=== PATIENT | female | born 1965 | race Caucasian/White ===

== ENCOUNTER 2017-07-28 11:13 | Emergency (ER) | payer OTHER ==
[2017-07-28] MEDS ORDERED: ONDANSETRON 4 MG/2 ML VIAL IVP STA (11:38)
[2017-07-28] MEDS ORDERED: SODIUM CHLORIDE 0.9% 2,000 ML IV STA (11:38)
[2017-07-28 12:15] LABS: Basophils % (A) 0 %; CH 32.4; CHCM 36.1; Eosinophils # (A) 0.2 k/uL (0-0.7); Eosinophils % (A) 3 %; HCT 40.9 % (34.0-46.0); HDW 2.63; HGB 14.8 gm/dL (11.4-16.0); Luc # (Auto) 0.11; Luc % (Auto) 2; Lymphocytes # (A) 1.6 k/uL (1.0-4.8); Lymphocytes % (A) 28 %; MCH 32.6 pg (25.0-35.0); MCHC 36.2 g/dL (31.0-37.0); Monocytes # (A) 0.3 k/uL (0-1.0); Monocytes % (A) 5 %; Neutrophils # (A) 3.5 k/uL (1.3-7.7); Neutrophils % (A) 62 %; RBC 4.55 m/uL (3.80-5.40); RDW 12.8 % (11.5-15.5); WBC 5.7 k/uL (3.8-10.6); WBC (Perox) 5.52
[2017-07-28 12:16] LABS: ALT 27 U/L (9-52); AST 24 U/L (14-36); Alkaline Phosphatase 47 U/L (38-126); Amylase 55 U/L (30-110); Anion Gap 6 mmol/L; Blood Urea Nitrogen 16 mg/dL (7-17); Calcium 10.3 mg/dL (8.4-10.2); Carbon Dioxide 27 mmol/L (22-30); Chloride 107 mmol/L (98-107); Glucose 95 mg/dL (74-99); Non-African American GFR(MDRD) >60 (>60 ml/min/1.73 sqM); Sodium 140 mmol/L (137-145); Total Bilirubin 0.5 mg/dL (0.2-1.3); Total Protein 6.8 g/dL (6.3-8.2)
--- NOTE | 2017-07-28 12:17 | ED ---
Nausea/Vomiting/Diarrhea HPI - General Chief complaint: Nausea/Vomiting/Diarrhea Stated complaint: Severe diarrhea Time Seen by Provider: 07/28/17 11:22 Source: patient, RN notes reviewed, old records reviewed Mode of arrival: ambulatory Limitations: no limitations - History of Present Illness Initial comments: This is a 52-year-old female presenting to emergency Department chief complaint of diarrhea for the past month. Patient reports it seemed to start after she had a vacation in [place]. Patient states 2 weeks after vacation apart and she started noticed the severe diarrhea. She states it's mucousy. She states that she's noticed no blood. Patient reports that she feels very full and bloated. States she feels nauseated but denies any specific vomiting. She reports that she'll have lower abdominal cramping. Patient states that she cannot eat anything after that until cause further diarrhea. Patient's surgical history includes tubal ligation, and multiple plastic surgeries. - Related Data Previous Rx's Medication Instructions Recorded Ciprofloxacin HCl [Cipro] 500 mg PO Q12HR #6 tab 07/28/17 Allergies Allergy/AdvReac Type Severity Reaction Status Date / Time No Known Allergies Allergy Verified 07/28/17 11:43 Review of Systems ROS Statement: Those systems with pertinent positive or pertinent negative responses have been documented in the HPI. ROS Other: All systems not noted in ROS Statement are negative. Past Medical History Additional Past Medical History / Comment(s): Heart Murmur History of Any Multi-Drug Resistant Organisms: MRSA Date of last positivie culture/infection: 2009 Past Surgical History: Hysterectomy, Orthopedic Surgery Past Psychological History: Anxiety, Depression Smoking Status: Former smoker Past Alcohol Use History: Occasional Past Drug Use History: None Reported General Exam - General Exam Comments Initial Comments: This is a 52-year-old female. Patient does not appear to be in any acute distress. Limitations: no limitations General appearance: alert, in no apparent distress Head exam: Present: atraumatic, normocephalic, normal inspection Eye exam: Present: normal appearance, PERRL, EOMI. Absent: scleral icterus, conjunctival injection, periorbital swelling ENT exam: Present: normal exam, mucous membranes moist Neck exam: Present: normal inspection. Absent: tenderness, meningismus, lymphadenopathy Respiratory exam: Present: normal lung sounds bilaterally. Absent: respiratory distress, wheezes, rales, rhonchi, stridor Cardiovascular Exam: Present: regular rate, normal rhythm, normal heart sounds. Absent: systolic murmur, diastolic murmur, rubs, gallop, clicks GI/Abdominal exam: Present: soft, normal bowel sounds, hyperactive bowel sounds (Patient has hyperactive bowel sounds.). Absent: distended, guarding, rebound, rigid Extremities exam: Present: normal inspection, full ROM, normal capillary refill. Absent: tenderness, pedal edema, joint swelling, calf tenderness Back exam: Present: normal inspection Neurological exam: Present: alert, oriented X3, CN II-XII intact Psychiatric exam: Present: normal affect, normal mood Skin exam: Present: warm, dry, intact, normal color. Absent: rash Course Vital Signs 07/28/17 07/28/17 11:15 15:11 Temperature 97.4 F L 97.8 F Pulse Rate 65 52 L Respiratory 18 16 Rate Blood Pressure 125/80 134/84 O2 Sat by Pulse 100 99 Oximetry Medical Decision Making - Medical Decision Making This is a 52-year-old female presenting to emergency Department chief complaint of diarrhea for the past month. Patient reports it seemed to start after she had a vacation in [place]. Patient states 2 weeks after vacation apart and she started noticed the severe diarrhea. She states it's mucousy. She states that she's noticed no blood. Patient reports that she feels very full and bloated. Patient's laboratory been negative for any acute process. C. diff negative. Patient is given IV fluids. She reports she is feeling somewhat better. His elbow discharge the patient with antibiotic as I'm concerned due to the length of time she may have an infectious diarrhea. Stool cultures obtained. Discussed following up with a primary care provider. Discussed return to emergency department if any alarming signs symptoms occur. - Lab Data Result diagrams: 07/28/17 11:52 07/28/17 11:52 Lab Results 07/28/17 07/28/17 07/28/17 Range/Units 11:52 11:52 11:52 WBC 5.7 (3.8-10.6) k/uL RBC 4.55 (3.80-5.40) m/uL Hgb 14.8 (11.4-16.0) gm/dL Hct 40.9 (34.0-46.0) % MCV 90.0 (80.0-100.0) fL MCH 32.6 (25.0-35.0) pg MCHC 36.2 (31.0-37.0) g/dL RDW 12.8 (11.5-15.5) % Plt Count 204 (150-450) k/uL Neutrophils % 62 % Lymphocytes % 28 % Monocytes % 5 % Eosinophils % 3 % Basophils % 0 % Neutrophils # 3.5 (1.3-7.7) k/uL Lymphocytes # 1.6 (1.0-4.8) k/uL Monocytes # 0.3 (0-1.0) k/uL Eosinophils # 0.2 (0-0.7) k/uL Basophils # 0.0 (0-0.2) k/uL Sodium 140 (137-145) mmol/L Potassium 4.0 (3.5-5.1) mmol/L Chloride 107 (98-107) mmol/L Carbon Dioxide 27 (22-30) mmol/L Anion Gap 6 mmol/L BUN 16 (7-17) mg/dL Creatinine 0.81 (0.52-1.04) mg/dL Est GFR (MDRD) Af Amer >60 (>60 ml/min/1.73 sqM) Est GFR (MDRD) Non-Af >60 (>60 ml/min/1.73 sqM) Glucose 95 (74-99) mg/dL Calcium 10.3 H (8.4-10.2) mg/dL Total Bilirubin 0.5 (0.2-1.3) mg/dL AST 24 (14-36) U/L ALT 27 (9-52) U/L Alkaline Phosphatase 47 (38-126) U/L Total Protein 6.8 (6.3-8.2) g/dL Albumin 3.9 (3.5-5.0) g/dL Amylase 55 (30-110) U/L Lipase 112 (23-300) U/L TSH 2.540 (0.465-4.680) mIU/L Urine Color Urine Appearance (Clear) Urine pH (5.0-8.0) Ur Specific [place] (1.001-1.035) Urine Protein (Negative) Urine Glucose (UA) (Negative) Urine Ketones (Negative) Urine Blood (Negative) Urine Nitrite (Negative) Urine Bilirubin (Negative) Urine Urobilinogen (<2.0) mg/dL Ur Leukocyte Esterase (Negative) Stool Occult Blood (Negative) Stl Cryptosporidium Ag (Negative) Stool Giardia Source Stl Giardia Antigen (Negative) C. difficile (EIA) Intrp (Negative) 07/28/17 07/28/17 07/28/17 Range/Units 12:22 12:28 12:28 WBC (3.8-10.6) k/uL RBC (3.80-5.40) m/uL Hgb (11.4-16.0) gm/dL Hct (34.0-46.0) % MCV (80.0-100.0) fL MCH (25.0-35.0) pg MCHC (31.0-37.0) g/dL RDW (11.5-15.5) % Plt Count (150-450) k/uL Neutrophils % % Lymphocytes % % Monocytes % % Eosinophils % % Basophils % % Neutrophils # (1.3-7.7) k/uL Lymphocytes # (1.0-4.8) k/uL Monocytes # (0-1.0) k/uL Eosinophils # (0-0.7) k/uL Basophils # (0-0.2) k/uL Sodium (137-145) mmol/L Potassium (3.5-5.1) mmol/L Chloride (98-107) mmol/L Carbon Dioxide (22-30) mmol/L Anion Gap mmol/L BUN (7-17) mg/dL Creatinine (0.52-1.04) mg/dL Est GFR (MDRD) Af Amer (>60 ml/min/1.73 sqM) Est GFR (MDRD) Non-Af (>60 ml/min/1.73 sqM) Glucose (74-99) mg/dL Calcium (8.4-10.2) mg/dL Total Bilirubin (0.2-1.3) mg/dL AST (14-36) U/L ALT (9-52) U/L Alkaline Phosphatase (38-126) U/L Total Protein (6.3-8.2) g/dL Albumin (3.5-5.0) g/dL Amylase (30-110) U/L Lipase (23-300) U/L TSH (0.465-4.680) mIU/L Urine Color Yellow Urine Appearance Clear (Clear) Urine pH 6.0 (5.0-8.0) Ur Specific [place] 1.017 (1.001-1.035) Urine Protein Negative (Negative) Urine Glucose (UA) Negative (Negative) Urine Ketones Negative (Negative) Urine Blood Negative (Negative) Urine Nitrite Negative (Negative) Urine Bilirubin Negative (Negative) Urine Urobilinogen <2.0 (<2.0) mg/dL Ur Leukocyte Esterase Negative (Negative) Stool Occult Blood Negative (Negative) Stl Cryptosporidium Ag Negative (Negative) Stool Giardia Source Stool Stl Giardia Antigen Negative (Negative) C. difficile (EIA) Intrp (Negative) 07/28/17 Range/Units 12:28 WBC (3.8-10.6) k/uL RBC (3.80-5.40) m/uL Hgb (11.4-16.0) gm/dL Hct (34.0-46.0) % MCV (80.0-100.0) fL MCH (25.0-35.0) pg MCHC (31.0-37.0) g/dL RDW (11.5-15.5) % Plt Count (150-450) k/uL Neutrophils % % Lymphocytes % % Monocytes % % Eosinophils % % Basophils % % Neutrophils # (1.3-7.7) k/uL Lymphocytes # (1.0-4.8) k/uL Monocytes # (0-1.0) k/uL Eosinophils # (0-0.7) k/uL Basophils # (0-0.2) k/uL Sodium (137-145) mmol/L Potassium (3.5-5.1) mmol/L Chloride (98-107) mmol/L Carbon Dioxide (22-30) mmol/L Anion Gap mmol/L BUN (7-17) mg/dL Creatinine (0.52-1.04) mg/dL Est GFR (MDRD) Af Amer (>60 ml/min/1.73 sqM) Est GFR (MDRD) Non-Af (>60 ml/min/1.73 sqM) Glucose (74-99) mg/dL Calcium (8.4-10.2) mg/dL Total Bilirubin (0.2-1.3) mg/dL AST (14-36) U/L ALT (9-52) U/L Alkaline Phosphatase (38-126) U/L Total Protein (6.3-8.2) g/dL Albumin (3.5-5.0) g/dL Amylase (30-110) U/L Lipase (23-300) U/L TSH (0.465-4.680) mIU/L Urine Color Urine Appearance (Clear) Urine pH (5.0-8.0) Ur Specific [place] (1.001-1.035) Urine Protein (Negative) Urine Glucose (UA) (Negative) Urine Ketones (Negative) Urine Blood (Negative) Urine Nitrite (Negative) Urine Bilirubin (Negative) Urine Urobilinogen (<2.0) mg/dL Ur Leukocyte Esterase (Negative) Stool Occult Blood (Negative) Stl Cryptosporidium Ag (Negative) Stool Giardia Source Stl Giardia Antigen (Negative) C. difficile (EIA) Intrp Negative (Negative) Disposition Clinical Impression: Chronic diarrhea Disposition: HOME SELF-CARE Condition: Good Instructions: Acute Diarrhea (ED), Nutrition Tips for Relief of Diarrhea (ED) Additional Instructions: Patient advised to rest, remain hydrated. Clear liquid diet. Take antibiotics as prescribed. Return to the emergency department if any alarming signs or symptoms occur. Prescriptions: Ciprofloxacin HCl [Cipro] 500 mg PO Q12HR #6 tab Referrals: None,Stated [Primary Care Provider] - 1-2 days Janey Carpenter MD [REFERRING] - 1-2 days Komal Hoang MD [STAFF PHYSICIAN] - 1-2 days Time of Disposition: 14:38
--- NOTE | 2017-07-28 12:43 | XR ---
EXAMINATION TYPE: XR KUB DATE OF EXAM: 07/28/2017 12:37 PM CLINICAL HISTORY: Abdominal pain and diarrhea for one month TECHNIQUE: 2 upright KUB images of the abdomen are obtained. COMPARISON: None. FINDINGS: There is some paucity of bowel gas. Visualized gas is noted in nondistended small and large bowel loops. There is no visceromegaly, pneumoperitoneum, or abnormal calcification appreciated. The lung bases are clear and the osseous structures are intact. IMPRESSION: Overall nonspecific but favor nonobstructive bowel gas pattern.
[2017-07-28] MEDS ORDERED: SODIUM CHLORIDE 0.9% 1,000 ML IV SCH (13:00)
[2017-07-28 13:15] LABS: Appearance,Urine Clear (Clear); Bilirubin,Urine Negative (Negative); Glucose,Urine (UA) Negative (Negative); Ketones,Urine Negative (Negative); Leukocyte Esterase,Urine Negative (Negative); Nitrite,Urine Negative (Negative); Protein,Urine Negative (Negative); Specific Gravity,Urine 1.017 (1.001-1.035); UA Billing (MACRO vs. MICRO) CHEM; Urobilinogen,Urine <2.0 mg/dL (<2.0)
[2017-07-28] MEDS ORDERED: CIPROFLOXACIN HCL 500 MG TAB PO STA (14:39)
[2017-07-28 15:12] VITALS: BP 134/84; PULSE 52; RESP 16; TEMP 97.8
== END 2017-07-28 15:12 | disposition home or self-care (01) ==
LOC: EC 11:13
DX: K52.9 Noninfective gastroenteritis and colitis, unspecified (principal); Z86.73 Personal history of transient ischemic attack (TIA), and cerebral infarction without residual deficits; Z90.710 Acquired absence of both cervix and uterus; Z98.51 Tubal ligation status; Z87.891 Personal history of nicotine dependence; Z53.20 Procedure and treatment not carried out because of patient's decision for unspecified reasons
CPT/HCPCS: 36415; 80053; 84443; 82150; 83690; 85025; 82272; 81003; 87324; 87045; 87329; 87328; 89055; 87046; 74000; 99284; 96374; 96361 ×2; J2405

== ENCOUNTER 2019-12-17 21:25 | Emergency (ER) | payer BC, OTHER ==
[2019-12-17 21:46] VITALS: RESP 16
[2019-12-17 22:09] LABS: Amphetamine Screen,Urine Not Detected (NotDetected); Barbiturate Screen,Urine Not Detected (NotDetected); Benzodiazepines Screen,Urine Not Detected (NotDetected); Cocaine Screen,Urine Not Detected (NotDetected); Methadone Screen, Urine Not Detected (NotDetected); Opiate Screen,Urine Not Detected (NotDetected); Oxycodone Screen, Urine Not Detected (NotDetected); Phencyclidine Screen,Urine Not Detected (NotDetected); Tricyclic Antidepressant,Urine Not Detected (NotDetected); Urn Cannabinoid Scrn Not Detected (NotDetected)
--- NOTE | 2019-12-17 22:34 | XR ---
EXAMINATION TYPE: XR ribs LT w pa chest xray DATE OF EXAM: 12/17/2019 COMPARISON: NONE HISTORY: Left-sided rib pain TECHNIQUE: 5 views FINDINGS: Heart is enlarged. There is no heart failure. Costophrenic angles are clear. There are no h ilar masses. There is no evidence of pleural effusion or pneumothorax. IMPRESSION: Normal left ribs. Cardiomegaly.
--- NOTE | 2019-12-17 22:41 | ED ---
Psych HPI - General Chief Complaint: Psychiatric Symptoms Stated Complaint: ETOH Time Seen by Provider: 12/17/19 21:38 Source: EMS, RN notes reviewed, old records reviewed Mode of arrival: EMS Limitations: altered mental status - History of Present Illness Initial Comments: This is a 54-year-old female coming in intoxicated with unsure circumstances are n't in by PD, patient may have had a fall with left rib pain. Possible alcohol intoxication possible other drug ingestion, patient is brought in for psychiatric evaluation by PD MD Complaint: altered mental status -: unknown Associated Psychiatric Symptoms: racing thoughts Quality: constant Improves With: none Worsens With: none Context: recent alcohol abuse Associated Symptoms: denies other symptoms Treatments Prior to Arrival: placed on mental health hold - Related Data Previous Rx's Medication Instructions Recorded Ciprofloxacin HCl [Cipro] 500 mg PO Q12HR #6 tab 07/28/17 Allergies Allergy/AdvReac Type Severity Reaction Status Date / Time No Known Allergies Allergy Verified 07/28/17 11:43 Review of Systems ROS Statement: Those systems with pertinent positive or pertinent negative responses have been documented in the HPI. ROS Other: All systems not noted in ROS Statement are negative. Past Medical History Additional Past Medical History / Comment(s): Heart Murmur History of Any Multi-Drug Resistant Organisms: MRSA Date of last positivie culture/infection: 2009 Past Surgical History: Hysterectomy, Orthopedic Surgery Past Psychological History: Anxiety, Depression Smoking Status: Former smoker Past Alcohol Use History: Occasional Past Drug Use History: None Reported General Exam Limitations: altered mental status General appearance: alert, in no apparent distress Head exam: Present: atraumatic, normocephalic, normal inspection Eye exam: Present: normal appearance, PERRL, EOMI. Absent: scleral icterus, conjunctival injection, periorbital swelling ENT exam: Present: normal exam, mucous membranes moist Neck exam: Present: normal inspection. Absent: tenderness, meningismus, lymphadenopathy Respiratory exam: Present: normal lung sounds bilaterally. Absent: respiratory distress, wheezes, rales, rhonchi, stridor Cardiovascular Exam: Present: regular rate, normal rhythm, normal heart sounds. Absent: systolic murmur, diastolic murmur, rubs, gallop, clicks GI/Abdominal exam: Present: soft, normal bowel sounds. Absent: distended, tenderness, guarding, rebound, rigid Extremities exam: Present: normal inspection, full ROM, normal capillary refill. Absent: tenderness, pedal edema, joint swelling, calf tenderness Back exam: Present: normal inspection Neurological exam: Present: alert, oriented X3, CN II-XII intact Psychiatric exam: Present: normal affect, normal mood Skin exam: Present: warm, dry, intact, normal color. Absent: rash Course Vital Signs 12/17/19 21:30 Temperature 98.8 F Pulse Rate 62 Respiratory 16 Rate Blood Pressure 141/100 O2 Sat by Pulse 98 Oximetry - Reevaluation(s) Reevaluation #1: 12/17/19 23:41 Medical records reviewed Reevaluation #2: 12/17/19 23:55 His is here seeing patient, states patient is at normal mental status and will take patient home Medical Decision Making - Medical Decision Making D4 female here for evaluation patient has a for evaluation and possible need for psychiatric evaluation no need for psychiatric reasons situation at this time patient is not homicidal or suicidal patient will be discharged home - Lab Data Lab Results 12/17/19 Range/Units 21:00 Urine Opiates Screen Not Detected (NotDetected) Ur Oxycodone Screen Not Detected (NotDetected) Urine Methadone Screen Not Detected (NotDetected) Ur Propoxyphene Screen Not Detected (NotDetected) Ur Barbiturates Screen Not Detected (NotDetected) U Tricyclic Antidepress Not Detected (NotDetected) Ur Phencyclidine Scrn Not Detected (NotDetected) Ur Amphetamines Screen Not Detected (NotDetected) U Methamphetamines Scrn Not Detected (NotDetected) U Benzodiazepines Scrn Not Detected (NotDetected) Urine Cocaine Screen Not Detected (NotDetected) U Marijuana (THC) Screen Not Detected (NotDetected) Disposition Clinical Impression: Altered mental state, Alcohol intoxication Disposition: HOME SELF-CARE Condition: Good Instructions (If sedation given, give patient instructions): Alcohol Intoxication (ED) Is patient prescribed a controlled substance at d/c from ED?: No Referrals: None,Stated [Primary Care Provider] - 1-2 days
[2019-12-18 00:38] VITALS: BP 124/83; PULSE 65; TEMP 98
== END 2019-12-18 00:22 | disposition home or self-care (01) ==
LOC: EC 21:25
DX: F10.129 Alcohol abuse with intoxication, unspecified (principal); R41.82 Altered mental status, unspecified; Z86.14 Personal history of Methicillin resistant Staphylococcus aureus infection; Z87.891 Personal history of nicotine dependence
CPT/HCPCS: 80306; 82075; 99285